=== PATIENT | female | born 1990 | race African-American/Black ===

== ENCOUNTER 2020-01-15 18:32 | Emergency (ER) | payer OTHER, SELFPAY ==
--- OUTSIDE RECORDS SUMMARY | 2020-01-15 18:34 | XMS REPORT | Continuity of Care Document ---
:1990 Author Organization [facility] t Address [address] [place] [address] Care Team Providers Name Role Phone Bryan Flores MD Attending Clinician Bryan Flores MD Admitting Clinician Problems This patient has no known problems. Allergies, Adverse Reactions, Alerts This patient has no known allergies or adverse reactions. Medications This patient has no known medications. Procedures This patient has no known procedures. Encounters Start End Encounter Admission Attending Care Care Encounter Source Date/Time Date/Time Type Type Clinicians Facility Department ID 2019-01-31 2019-02-01 [facility] Brit Floresen [place] [id number] 04:19:00 18:16:00 Encounter Bryan Rosas [id number] [place] [id number] [place] [id number] Results This patient has no known results.
--- NOTE | 2020-01-15 19:35 | RAD REPORT ---
EXAM DESCRIPTION: Gerson Johnson (2 Views)01/15/2020 7:28 pm CLINICAL HISTORY: Shortness of breath COMPARISON: None FINDINGS: The lungs appear clear of acute infiltrate. The heart is normal size IMPRESSION: No acute abnormalities displayed
[2020-01-15 20:32] LABS: Absolute Lymphocytes (CBC) 0.6 K/uL (0.7-4.9); Basophils % 0.2 % (0-1.3); Hematocrit 38.9 % (36.0-45.0); Lymphocytes % 5.3 % (15.3-44.8); RBC Red Blood Cell Count 4.08 M/uL (3.86-4.86)
[2020-01-15] MEDS ORDERED: NA CHLORIDE 0.9% 1,000 ML ONE (20:44)
[2020-01-15] MEDS ORDERED: KETOROLAC 30 MG/ML INJ ONE (20:44)
[2020-01-15] MEDS ORDERED: ALBUTEROL INHALER 60 PUFF/8 GM IH ONE (20:45)
[2020-01-15 20:47] LABS: ALT/SGPT 25 U/L (12-78); AST/SGOT 21 U/L (15-37); Albumin 3.9 g/dL (3.4-5.0); Alkaline Phosphatase 81 U/L (45-117); BUN Blood Urea Nitrogen 9 mg/dL (7-18); Bicarbonate 26 mmol/L (21-32); Bilirubin Direct < 0.1 mg/dL (0-0.2); Bilirubin Total 0.3 mg/dL (0.2-1.0); Glucose Level 111 mg/dL (74-106); Potassium 3.4 mmol/L (3.5-5.1); Protein, Total 8.2 g/dL (6.4-8.2); Sodium Level 140 mmol/L (136-145); Troponin (Emerg Dept Use Only) < 0.02 ng/mL (0.0-0.045)
[2020-01-15 20:50] LABS: Blood Morphology Comment NOT SEEN (NOT SEEN); Platelet Estimate ADEQ; White Blood Cell Scan OK (OK)
[2020-01-15 20:54] LABS: Protime INR 0.96
[2020-01-15 21:10] LABS: Urine Bacteria <20 /HPF (<20); Urine Culture Reflex Order REFLEXED; Urine RBC <5 /HPF (NONE SEEN)
[2020-01-15 21:11] LABS: Urine Blood NEGATIVE (NEG); Urine Glucose NEGATIVE (NEG); Urine Protein NEGATIVE (NEG)
[2020-01-15] MEDS ORDERED: CEFTRIAXONE/SWI 1gm 1 GM/10 ML SYR ONE (21:15)
[2020-01-15] MEDS ORDERED: AZITHROMYCIN 250 MG TAB ONE (22:24)
[2020-01-15] MEDS ORDERED: dexAMETHasone 10 MG/ML VIAL ONE (22:28)
[2020-01-15] MEDS ORDERED: POTASSIUM 25 MEQ EFFERV TAB ONE (22:34)
--- NOTE | 2020-01-15 22:35 | EDPHYS ---
Physician Documentation [facility] Name: Sugar Hughes Age: 29 yrs Sex: Female : 1990 Arrival Date: 01/15/2020 Time: 18:31 Bed 19 Private MD: ED Physician Shan Flores HPI: 01/14 20:05 This 29 yrs old Black Female presents to ER via Ambulatory with complaints of Chest cp Pain, Shortness Of Breath. 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 - Social history:: Smoking status: Patient denies any tobacco usage or history of. ROS: 20:10 Constitutional: Negative for fever, poor PO intake. cp 20:10 Eyes: Negative for injury, pain, redness, and discharge. cp 20:10 ENT: Positive for sore throat, Negative for ear pain, difficulty swallowing, difficulty handling secretions. 20:10 Neck: Negative for pain with movement, pain at rest, stiffness. 20:10 Cardiovascular: Positive for chest pain, Negative for edema, palpitations. 20:10 Respiratory: Positive for cough, "sounds productive", shortness of breath, at rest. Negative for wheezing. 20:10 Abdomen/GI: Negative for abdominal pain, nausea, vomiting, and diarrhea. 20:10 Back: Negative for radiated pain. 20:10 : Negative for urinary symptoms. 20:10 Skin: Negative for rash. 20:10 Neuro: Negative for altered mental status, headache, syncope, weakness. 20:10 All other systems are negative. Exam: 18:40 ECG was reviewed by the Attending Physician. cp 20:12 Constitutional: The patient appears in no acute distress, alert, awake, cp non-diaphoretic, non-toxic, well developed, well nourished, uncomfortable. 20:12 Head/Face: Normocephalic, atraumatic. cp 20:12 Eyes: Periorbital structures: appear normal, Conjunctiva: normal, no exudate, no injection, Sclera: no appreciated abnormality, Lids and lashes: appear normal, bilaterally. 20:12 ENT: External ear(s): are unremarkable, Ear canal(s): are normal, clear, TM's: bulging, is not appreciated, bilaterally, dullness, bilaterally, erythema, is not appreciated, bilaterally, Nose: is normal, Mouth: Lips: moist, Oral mucosa: moist, Posterior pharynx: Airway: no evidence of obstruction, patent, Tonsils: with erythema, no enlargement, no exudate, swelling, is not appreciated, erythema, that is mild, exudate, is not appreciated. 20:12 Neck: ROM/movement: is normal, is supple, without pain, no range of motions limitations. 20:12 Chest/axilla: Inspection: normal, Palpation: is normal, no crepitus, no tenderness. 20:12 Cardiovascular: Rate: normal, Rhythm: regular, Edema: is not appreciated, JVD: is not appreciated. 20:12 Respiratory: the patient does not display signs of respiratory distress, Respirations: normal, no use of accessory muscles, no retractions, labored breathing, is not present, Breath sounds: decreased breath sounds, are not appreciated, stridor, is not appreciated, wheezing: is not appreciated. 20:12 Abdomen/GI: Inspection: abdomen appears normal, Palpation: abdomen is soft and non-tender, in all quadrants. 20:12 Back: CVA tenderness, is absent. 20:12 Skin: no rash present. 20:12 Neuro: Orientation: to person, place \\T\\ time. Mentation: is normal, Cerebellar function: is grossly normal, Motor: moves all fours, strength is normal, Sensation: is normal. Vital Signs: 18:32 BP 109 / 77; Pulse 95; Resp 24; Temp 98.7; Pulse Ox 99% ; Weight 54.43 kg; Height 5 ft. sv 4 in. (162.56 cm); 19:56 BP 112 / 75; Pulse 95; Resp 19 S; Pulse Ox 99% on R/A; ca1 20:57 BP 113 / 67; Pulse 103; Resp 18; Pulse Ox 100% on R/A; ca1 22:18 BP 105 / 80; Pulse 93; Resp 18; Temp 98.9; Pulse Ox 99% on R/A; Pain 0/10; ca1 18:32 Body Mass Index 20.60 (54.43 kg, 162.56 cm) sv MDM: 19:53 Patient medically screened. cp 20:30 Differential diagnosis: abnormal EKG, acute pericarditis, costochondritis, pleurisy, cp pneumonia, pneumothorax, pulmonary embolus. 22:15 Data reviewed: vital signs, nurses notes, lab test result(s), EKG, radiologic studies, cp CT scan, plain films, and as a result, I will discharge patient. 22:33 Test interpretation: by ED physician or midlevel provider: ECG, chest xray negative for cp focal pneumonia. 22:33 Counseling: I had a detailed discussion with the patient and/or guardian regarding: the cp historical points, exam findings, and any diagnostic results supporting the discharge/admit diagnosis, lab results, radiology results, the need for outpatient follow up, a family practitioner, to return to the emergency department if symptoms worsen or persist or if there are any questions or concerns that arise at home. Response to treatment: the patient's symptoms have markedly improved after treatment. ED course: VSS. Patient appears non-toxic and not in respiratory distress. Oxygen sats 99% on room air. Will discharge to home for continued monitoring. 01/14 20:04 Order name: Basic Metabolic Panel; Complete Time: 20:57 cp 01/14 20:57 Interpretation: Normal except: K 3.4; CL 108; GLUC 111; GFR 63. cp 01/14 20:04 Order name: CBC with Diff; Complete Time: 20:57 cp 01/14 20:47 Interpretation: Normal except: MCV 95.3; ALEJO% 85.4; LYM% 5.3; NEUT A 9.3; LYMA 0.6. cp 01/14 20:04 Order name: LFT's; Complete Time: 20:57 cp 01/14 20:04 Order name: Magnesium; Complete Time: 20:57 cp 01/14 20:04 Order name: PT-INR; Complete Time: 20:57 cp 01/14 20:04 Order name: Troponin (emerg Dept Use Only); Complete Time: 20:57 cp 01/14 20:04 Order name: COVID-19 cp 01/14 20:04 Order name: Strep; Complete Time: 20:57 cp 01/14 20:04 Order name: Influenza Screen (a \\T\\ B); Complete Time: 20:57 cp 01/14 20:04 Order name: D-Dimer; Complete Time: 20:57 cp 01/14 20:41 Order name: Urine Microscopic Only; Complete Time: 22:05 sg 01/14 22:05 Interpretation: Normal except: UWBC 10-20. cp 01/14 20:43 Order name: Urine --Ancillary (enter results); Complete Time: 22:05 tt3 01/14 20:43 Order name: Urine Dipstick--Ancillary (enter results); Complete Time: 22:05 tt3 01/14 22:06 Interpretation: Normal except: U NIT POSITIVE; UESTR 1+. cp 01/14 20:50 Order name: CBC Smear Scan; Complete Time: 20:57 EDMS 01/14 18:39 Order name: EKG; Complete Time: 18:42 sv 01/14 18:39 Order name: EKG - Nurse/Tech; Complete Time: 18:39 sv 01/14 18:41 Order name: Chest Pa And Lat (2 Views) XRAY; Complete Time: 20:01 sv 01/14 20:04 Order name: Cardiac monitoring; Complete Time: 20:26 cp 01/14 20:04 Order name: IV Saline Lock; Complete Time: 20:26 cp 01/14 20:04 Order name: Labs collected and sent; Complete Time: 20:26 cp 01/14 20:04 Order name: O2 Per Protocol; Complete Time: 20:26 cp 01/14 20:59 Order name: CT Chest For PE Angio cp 01/14 21:11 Order name: Urine Culture EDIN 01/14 20:04 Order name: O2 Sat Monitoring; Complete Time: 20:26 cp 01/14 20:04 Order name: Urine Dipstick-Ancillary (obtain specimen); Complete Time: 20:37 cp 01/14 20:04 Order name: Urine Test (obtain specimen); Complete Time: 20:37 cp EC:40 Rate is 100 beats/min. Rhythm is regular. MT interval is normal. QRS interval is cp normal. QT interval is normal. T waves are Inverted in leads III, aVR. Interpreted by me. Reviewed by me. Administered Medications: 20:12 Drug: Albuterol HFA Inhaler 2 puffs Route: Inhalation; ca1 20:30 Drug: NS 0.9% 1000 ml Route: IV; Rate: 1 bolus; Site: left antecubital; ca1 20:45 Drug: TORadol - Ketorolac 15 mg Route: IVP; Site: left antecubital; ca1 21:03 Drug: Rocephin - (cefTRIAXone) 1 grams Route: IVPB; Infused Over: 30 mins; Site: left ca1 antecubital; 22:17 Drug: Decadron - Dexamethasone 6 mg Route: IVP; Infused Over: 2 mins; Site: left ca1 antecubital; 22:18 Drug: Zithromax 500 mg Route: PO; ca1 22:18 Drug: Potassium Effervescent Tablet 25 mEq Route: PO; ca1 Disposition: 23:52 Co-signature as Attending Physician, Shan Flores MD. pkl Disposition: 01/15/20 22:35 Discharged to Home. Impression: Pneumonia due to other specified infectious organisms, Influenza due to other identified influenza virus, Streptococcal pharyngitis. - Condition is Stable. - Discharge Instructions: Influenza, Adult, Community-Acquired Pneumonia, Adult, Strep Throat, COVID-19. - Prescriptions for dexamethasone 2 mg Oral tablet - take 1 tablet by ORAL route 3 times per day; 15 tablet. Augmentin 875- 125 mg Oral Tablet - take 1 tablet by ORAL route every 12 hours for 10 days; 20 tablet. Tessalon Perles 100 mg Oral Capsule - take 1 capsule by ORAL route every 8 hours As needed; 15 capsule. Zithromax Z- Dejon 250 mg Oral Tablet - take 1 tablet by ORAL route as directed for 5 days Day 1 - take two (2) tablets one time. Day 2, 3, 4 , 5 take one (1) tablet once daily.; 6 tablet. Albuterol Sulfate 90 mcg/actuation - inhale 1-2 puff by INHALATION route every 4-6 hours; 1 Inhaler. Tamiflu 75 mg Oral Capsule - take 1 tablet by ORAL route every 12 hours for 5 days; 10 tablet. - Medication Reconciliation Form, Thank You Letter, Antibiotic Education, Prescription Opioid Use form. - Follow up: Private Physician; When: 1 - 2 days; Reason: Recheck today's complaints. - Problem is new. - Symptoms have improved. Signatures: Dispatcher [employer] Carolyne Smith RN RN kl Verde, Stephanie, RN RN sv Lam, Pin, MD MD pkl Jack Tong PA PA cp Acob, EFFIE Henson RN ca1 Corrections: (The following items were deleted from the chart) 20:47 20:47 Normal except: MCV 95.3; ALEJO% 85.4; LYM% 5.3; NEUT A 9.3. cp cp 21:00 21:00 This 29 yrs old Black Female presents to ER via Ambulatory with complaints of cp Chest Pain, Shortness Of Breath. cp 22:54 22:35 01/15/2020 22:35 Discharged to Home. Impression: Pneumonia due to other specified kl infectious organisms; Influenza due to other identified influenza virus; Streptococcal pharyngitis. Condition is Stable. Forms are Medication Reconciliation Form, Thank You Letter, Antibiotic Education, Prescription Opioid Use. Follow up: Private Physician; When: 1 - 2 days; Reason: Recheck today's complaints. Problem is new. Symptoms have improved. cp
--- NOTE | 2020-01-15 22:35 | ER ---
Nurse's Notes [facility] Name: Sugar Hughes Age: 29 yrs Sex: Female : 1990 Arrival Date: 01/15/2020 Time: 18:31 Bed 19 Private MD: Diagnosis: Pneumonia due to other specified infectious organisms;Influenza due to other identified influenza virus;Streptococcal pharyngitis Presentation: 01/14 18:31 Chief complaint: Patient states: SOB, midsternal chest pain started today. Coronavirus sv screen: Client denies travel out of the [place] in the last 14 days. shortness of breath. Ebola Screen: No symptoms or risks identified at this time. Risk Assessment: Do you want to hurt yourself or someone else? Patient reports no desire to harm self or others. Onset of symptoms was January 15, 2020. 18:31 Method Of Arrival: Ambulatory sv 18:31 Acuity: KELBY 3 sv 18:32 Initial Sepsis Screen: Does the patient meet any 2 criteria? No. Patient's initial sv sepsis screen is negative. Does the patient have a suspected source of infection? No. Patient's initial sepsis screen is negative. Triage Assessment: 18:31 General: Appears in no apparent distress. uncomfortable, Behavior is anxious, restless. sv Pain: Complains of pain in chest. Neuro: Level of Consciousness is awake, alert, obeys commands, Oriented to person, place, time, situation, Gait is steady. Cardiovascular: Reports chest pain. Respiratory: Reports shortness of breath Respiratory effort is even, unlabored, Respiratory pattern is regular, symmetrical. 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 - Social history:: Smoking status: Patient denies any tobacco usage or history of. Screenin:52 Abuse screen: Denies threats or abuse. Denies injuries from another. Nutritional ca1 screening: No deficits noted. Tuberculosis screening: No symptoms or risk factors identified. Fall Risk None identified. Assessment: 18:39 Reassessment: Ok by Dr Cook to do an EKG. sv 18:41 Reassessment: Ok by Janine LYNNE to input a CXR. sv 19:52 General: Appears in no apparent distress. comfortable, Behavior is calm, cooperative, ca1 appropriate for age. Pain: Complains of pain in mid-sternal area Pain does not radiate. Pain currently is 4 out of 10 on a pain scale. Pain began today. Neuro: Level of Consciousness is awake, alert, obeys commands, Oriented to person, place, time, situation. Cardiovascular: Heart tones S1 S2 present Capillary refill < 3 seconds Patient's skin is warm and dry. Rhythm is regular. Respiratory: Reports shortness of breath at rest cough that is productive, Airway is patent Respiratory effort is even, unlabored, Respiratory pattern is regular, symmetrical, Breath sounds are clear bilaterally. GI: Abdomen is flat, non-distended, Bowel sounds present X 4 quads. Abd is soft and non tender X 4 quads. : No signs and/or symptoms were reported regarding the genitourinary system. EENT: No signs and/or symptoms were reported regarding the EENT system. Derm: Skin is intact, is healthy with good turgor, Skin is pink, warm \T\ dry. Musculoskeletal: Circulation, motion, and sensation intact. Capillary refill < 3 seconds. 20:57 Reassessment: Patient appears in no apparent distress at this time. Patient and/or ca1 family updated on plan of care and expected duration. Pain level reassessed. Patient is alert, oriented x 3, equal unlabored respirations, skin warm/dry/pink. Vital Signs: 18:32 BP 109 / 77; Pulse 95; Resp 24; Temp 98.7; Pulse Ox 99% ; Weight 54.43 kg; Height 5 ft. sv 4 in. (162.56 cm); 19:56 BP 112 / 75; Pulse 95; Resp 19 S; Pulse Ox 99% on R/A; ca1 20:57 BP 113 / 67; Pulse 103; Resp 18; Pulse Ox 100% on R/A; ca1 22:18 BP 105 / 80; Pulse 93; Resp 18; Temp 98.9; Pulse Ox 99% on R/A; Pain 0/10; ca1 18:32 Body Mass Index 20.60 (54.43 kg, 162.56 cm) sv ED Course: 18:31 Patient arrived in ED. sv 18:32 Triage completed. sv 18:33 Arm band placed on. sv 18:39 EKG completed in triage. Results shown to MD. sv 19:28 Chest Pa And Lat (2 Views) XRAY In Process Unspecified. EDMS 19:50 Jack Tong PA is PHCP. cp 19:50 Shan Flores MD is Attending Physician. cp 19:52 Natividad Perez, RN is Primary Nurse. ca1 19:52 Patient has correct armband on for positive identification. Placed in gown. Bed in low ca1 position. Call light in reach. Side rails up X 1. Pulse ox on. NIBP on. monitoring specialist on. Warm blanket given. 19:52 No provider procedures requiring assistance completed. Patient maintains SpO2 ca1 saturation greater than 95% on room air. 20:21 Initial lab(s) drawn, Flu and/or RSV swab sent to lab. Inserted saline lock: 20 gauge ca1 in left antecubital area, using aseptic technique. Blood collected. 20:27 Influenza Screen (a \T\ B) Sent. ca1 20:27 Strep Sent. ca1 20:27 COVID-19 Sent. ca1 21:22 CT Chest For PE Angio In Process Unspecified. EDMS 22:53 intact, bleeding controlled, No redness/swelling at site. Pressure dressing applied. kl Administered Medications: 20:12 Drug: Albuterol HFA Inhaler 2 puffs Route: Inhalation; ca1 20:30 Drug: NS 0.9% 1000 ml Route: IV; Rate: 1 bolus; Site: left antecubital; ca1 20:45 Drug: TORadol - Ketorolac 15 mg Route: IVP; Site: left antecubital; ca1 21:03 Drug: Rocephin - (cefTRIAXone) 1 grams Route: IVPB; Infused Over: 30 mins; Site: left ca1 antecubital; 22:17 Drug: Decadron - Dexamethasone 6 mg Route: IVP; Infused Over: 2 mins; Site: left ca1 antecubital; 22:18 Drug: Zithromax 500 mg Route: PO; ca1 22:18 Drug: Potassium Effervescent Tablet 25 mEq Route: PO; ca1 Outcome: 22:35 Discharge ordered by MD. cp 22:52 Discharged to home ambulatory. kl 22:52 Condition: good 22:52 Discharge instructions given to patient, Instructed on discharge instructions, follow up and referral plans. medication usage, safety practices, Demonstrated understanding of instructions, follow-up care, medications, Prescriptions given X x6 22:54 Patient left the ED. kl Addendum: 01/17/2020 14:36 Addendum: COVID-19 Result: Negative result given to RN to notify pt. Attempted to s s contact pt regarding negative COVID-19 swab results. Unable to leave voice mail due to the number provided was either not a working number, the voice mail has not been set up, or the voice mailbox is full.. 14:47 Addendum: COVID-19 Result: Negative result given to RN to notify pt. Notified pt of s s negative COVID 19 swab results. Pt advised that even with a negative test result they should remain in isolation until symptom free for 3 days without medication. Pt also advised to return to the ED for worsening symptoms. Signatures: Dispatcher [employer] EDMS Carolyne Stevenson RN RN kl Verde, Stephanie, RN RN sv Smirch, Shelby, RN RN ss Page, Corey, PA PA cp Acob, Cheryl, RN RN ca1
--- NOTE | 2020-01-16 06:04 | EKG ---
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
[2020-01-16 09:26] VITALS: BP 105/80; TEMP 98.9; O2SAT 99
--- NOTE | 2020-01-16 10:06 | RAD REPORT ---
EXAM DESCRIPTION: CT - Chest For Pe Angio - 01/16/2020 6:37 am CLINICAL HISTORY: The patient is 29 years old and is Female; Chest pain;SOB TECHNIQUE: Axial computed tomographic angiography images of the chest with intravenous contrast. S agittal and coronal reformatted images were created and reviewed. This CT exam was performed using one or more of the following dose reduction techniques: automated exposure control, adjustment of t he mA and/or kV according to patient size, and/or use of iterative reconstruction technique. MIP reconstructed images were created and reviewed. COMPARISON: No relevant prior studies available. FINDINGS: ARTIFACTS: The exam is suboptimal secondary to motion artifact. PULMONARY ARTERIES: There are no obvious filling defects identified within the pulmonary arterie s to suggest pulmonary embolism. AORTA: No acute findings. No thoracic aortic aneurysm. LUNGS: Minimal foci of dependent density in the lung bases are present. There is no lobar consol idation. PLEURAL SPACE: Unremarkable. No significant effusion. No pneumothorax. HEART: Unremarkable. No cardiomegaly. No significant pericardial effusion. No evidence of RV dysfunction. MEDIASTINUM: The tracheobronchial tree is widely patent. BONES/JOINTS: No acute fracture. No dislocation. SOFT TISSUES: Unremarkable. LYMPH NODES: Unremarkable. No enlarged lymph nodes. IMPRESSION: 1. No evidence of pulmonary embolism. 2. Nonspecific foci of groundglass opacity in the lung bases. Findings may be secondary to mild foc al infectious versus inflammatory process. Electronically signed by: Charity Pedraza MD 01/15/2020 9:50 PM CREDIT SUPPORT SPECIALIST Due to temporary technical issues with the PACS/Fluency reporting system, reports are being signed by the in house radiologist without review as a courtesy to ensure prompt reporting. The interpreting r adiologist is fully responsible for the content of the report.
== END 2020-01-15 22:54 | disposition home or self-care (01) ==
LOC: ER 18:32
DX: J10.08 Influenza due to other identified influenza virus with other specified pneumonia (principal); J16.8 Pneumonia due to other specified infectious organisms; J02.0 Streptococcal pharyngitis; Z20.828 Contact with and (suspected) exposure to other viral communicable diseases
CPT/HCPCS: 36415; 71046; 71275; 80048; 80076; 81003; 81015; 81025; 83735; 84484; 85025; 85379; 85610; 87081; 87086; 87088; 87804; 93005; 96374; 96375; 99285; J0696; J1100; J7030; Q9967; U0002

== ENCOUNTER 2023-07-02 17:58 | Emergency (ER) | payer OTHER, SELFPAY ==
--- OUTSIDE RECORDS SUMMARY | 2023-07-02 18:02 | XMS REPORT | Continuity of Care Document ---
Author Name Unknown Address [address] [facility] [address] [place] [address] [facility] thconnect Address [address] [facility] [address] [place] [address] Care Team Providers Care Human Service Specialist Name Role Phone Pcp, Patient Does Not Have A Primary Care Physic michele YANETH LAUGHLIN Attending Clinician Unavailable Truman CASTILLO, Yaneth Adams Attending Clinician [phone] Doctor Unassigned, [place] Attending Clinician U navailable Nurse, [facility] Attending Clinician Un available Nurse, [facility] Pob Immunization Attending Clinician Unavailable Sidney Lindsey DO Attending Clinician [phone] SIDNEY LINDSEY Attending Clinician Unavail able 2, [facility] Lab Attending Clinician Unavailable Pob, [facility] Lab Main Attending Clinician UnavailGenna Solomon Attending Clinician [phone] KYARA COFFEY Attending Clinician Unavailable Kyara Coffey PA-C Attending Clinician [phone] Ultrasound, [facility] Mfm Attending Clinician Unavailjohn Laughlin MD, Yaneth Adams Admitting Clinician [phone] YANETH LAUGHLIN Admitting Clinician Unavailable Payers Payer Name Policy Type Policy Number Effective Date Expirati on Date Source [employer] [place] [id number] 2020 00:00:00 [facility] [id number] 2020 00:00:00 Problems Condition Name Condition Details Condition Category Status Onset Date Resolution Date Last Treatment Date Treating Clinician Comments Source Encounter for well woman exam with routine gynecologi berenice exam Encounter for well woman exam with routine gynecologi berenice exam Disease Active 03-08 00:00: 00 [facility] Depression , unspecifie d depression type Depression , unspecifie d depression type Disease Active 03-26 00:00: 00 [facility] Allergies, Adverse Reactions, Alerts Allergy Name Allergy Type Status Severity Reaction(s) Onset Date Inactive Date Treating Clinician Comments Source NO KNOWN ALLERGIE S Drug Class Active [facility] Social History Social Habit Start Date Stop Date Quantity Comments [facility] function 2023-06-14 00:00:00 2023-06-14 00:00:00 [facility] Alcohol intake 2023-06-14 00:00:00 2023-06-14 00:00:00 Current drinker of alcohol (finding) [facility] Tobacco use and exposure 2023-03-15 00:00:00 2023-03-15 00:00:00 Smokeless tobacco non-user [facility] Exposure to SARS-CoV-2 (event) 2022-02-26 00:00:00 2022-03-08 15:16:00 Not sure [facility] Alcohol Comment 2022-03-08 00:00:00 2022-03-08 00:00:00 occasionally [facility] Sex Assigned At 1990 00:00:00 1990 00:00:00 [facility] Smoking Status Start Date Stop Date Source Never smoked tobacco [facility] Medications Ordered Medication Name Filled Medication Name Start Date Stop Date Current Medication? Ordering Clinician Indication Dosage Frequency Signature (SIG) Comments Components Source metroNIDAZO LE (FLAGYL) 500 mg tablet 03-17 00:00: 00 03-25 05:59 :00 No [id number] 500mg Take 1 tablet by mouth in the morning and 1 tablet in the evening. Do all this for 7 days. [facility] medroxyPROG ESTERone (PROVERA) 10 mg tablet 2024-0 1-17 00:00: 00 Yes [id number] 10mg Take 1 tablet by mouth in the morning. [facility] PNV Comb #2-Iron-Ome ga 3-FA (COMPLETE MARCELLO DHA) 29-1-250-20 0 mg combo pack 03-24 00:00: 00 Yes 1{packe t} Take 1 Packet by mouth in the morning. [facility] PNV Comb #2-Iron-Ome ga 3-FA (COMPLETE MARCELLO DHA) 29-1-250-20 0 mg combo pack 03-24 00:00: 00 Yes 1{packe t} Take 1 Packet by mouth in the morning. [facility] SERTraline (ZOLOFT) 25 mg tablet 11-17 00:00: 00 Yes [id number] 25mg Take 1 tablet by mouth in the morning. [facility] SERTraline (ZOLOFT) 50 mg tablet 8-16 00:00: 00 11-17 00:00 :00 No [id number] 50mg Take 1 tablet by mouth in the morning. [facility] PNV Comb #2-Iron-Ome ga 3-FA (COMPLETE MARCELLO DHA) 29-1-250-20 0 mg combo pack 3-14 00:00: 00 03-24 00:00 :00 No 1{packe t} Take 1 Packet by mouth daily. [facility] Immunizations Ordered Immunization Name Filled Immunization Name Date Status Comments Source Influenza Virus Vaccine Quad IM, Preserv and ABX Free 6 MO-64 YRS 2022-03-08 00:00:00 Completed [facility] Influenza Virus Vaccine Quad IM, Preserv and ABX Free 6 MO-64 YRS 2022-03-08 00:00:00 Completed [facility] Influenza Virus Vaccine Quad IM, Preserv and ABX Free 6 MO-64 YRS 2022-03-08 00:00:00 Completed [facility] HPV9 2021-09-06 00:00:00 Completed [facility] HPV9 2021-09-06 00:00:00 Completed [facility] HPV9 2021-09-06 00:00:00 Completed [facility] HPV9 2021-09-06 00:00:00 Completed [facility] HPV9 2021-09-06 00:00:00 Completed [facility] HPV9 2021-09-06 00:00:00 Completed [facility] HPV9 2021-09-06 00:00:00 Completed [facility] HPV9 2021-09-06 00:00:00 Completed [facility] HPV9 2021-05-06 00:00:00 Completed [facility] HPV9 2021-05-06 00:00:00 Completed [facility] HPV9 2021-05-06 00:00:00 Completed [facility] HPV9 2021-05-06 00:00:00 Completed [facility] HPV9 2021-05-06 00:00:00 Completed [facility] HPV9 2021-05-06 00:00:00 Completed [facility] HPV9 2021-05-06 00:00:00 Completed [facility] HPV9 2021-05-06 00:00:00 Completed [facility] HPV9 2021-03-08 00:00:00 Completed [facility] HPV9 2021-03-08 00:00:00 Completed [facility] HPV9 2021-03-08 00:00:00 Completed [facility] HPV9 2021-03-08 00:00:00 Completed [facility] HPV9 2021-03-08 00:00:00 Completed [facility] HPV9 2021-03-08 00:00:00 Completed [facility] HPV9 2021-03-08 00:00:00 Completed [facility] HPV9 2021-03-08 00:00:00 Completed [facility] SARS-COV-2 COVID-19 PFIZER VACCINE 2020-10-21 00:00:00 Completed [facility] SARS-COV-2 COVID-19 PFIZER VACCINE 2020-10-21 00:00:00 Completed [facility] SARS-COV-2 COVID-19 PFIZER VACCINE 2020-10-21 00:00:00 Completed [facility] SARS-COV-2 COVID-19 PFIZER VACCINE 2020-10-21 00:00:00 Completed [facility] SARS-COV-2 COVID-19 PFIZER VACCINE 2020-10-21 00:00:00 Completed [facility] SARS-COV-2 COVID-19 PFIZER VACCINE 2020-10-21 00:00:00 Completed [facility] SARS-COV-2 COVID-19 PFIZER VACCINE 2020-10-21 00:00:00 Completed [facility] SARS-COV-2 COVID-19 PFIZER VACCINE 2020-10-21 00:00:00 Completed [facility] SARS-COV-2 COVID-19 PFIZER VACCINE 2020-09-30 00:00:00 Completed [facility] SARS-COV-2 COVID-19 PFIZER VACCINE 2020-09-30 00:00:00 Completed [facility] SARS-COV-2 COVID-19 PFIZER VACCINE 2020-09-30 00:00:00 Completed [facility] SARS-COV-2 COVID-19 PFIZER VACCINE 2020-09-30 00:00:00 Completed [facility] SARS-COV-2 COVID-19 PFIZER VACCINE 2020-09-30 00:00:00 Completed [facility] SARS-COV-2 COVID-19 PFIZER VACCINE 2020-09-30 00:00:00 Completed [facility] SARS-COV-2 COVID-19 PFIZER VACCINE 2020-09-30 00:00:00 Completed [facility] SARS-COV-2 COVID-19 PFIZER VACCINE 2020-09-30 00:00:00 Completed [facility] Influenza Virus Vaccine Quad .5 mL IM 6+ MO 2020-03-11 00:00:00 Completed [facility] Influenza Virus Vaccine Quad .5 mL IM 6+ MO 2020-03-11 00:00:00 Completed [facility] Influenza Virus Vaccine Quad .5 mL IM 6+ MO 2020-03-11 00:00:00 Completed [facility] Influenza Virus Vaccine Quad .5 mL IM 6+ MO 2020-03-11 00:00:00 Completed [facility] Influenza Virus Vaccine Quad .5 mL IM 6+ MO 2020-03-11 00:00:00 Completed [facility] Influenza Virus Vaccine Quad .5 mL IM 6+ MO 2020-03-11 00:00:00 Completed [facility] Influenza Virus Vaccine Quad .5 mL IM 6+ MO 2020-03-11 00:00:00 Completed [facility] Influenza Virus Vaccine Quad .5 mL IM 6+ MO 2020-03-11 00:00:00 Completed [facility] Influenza Virus Vaccine Quad .5 mL IM 6+ MO 2018-11-22 00:00:00 Completed [facility] TDAP (ADACEL) VACCINE 2018-11-22 00:00:00 Completed [facility] Influenza Virus Vaccine Quad .5 mL IM 6+ MO 2018-11-22 00:00:00 Completed [facility] TDAP (ADACEL) VACCINE 2018-11-22 00:00:00 Completed [facility] Influenza Virus Vaccine Quad .5 mL IM 6+ MO 2018-11-22 00:00:00 Completed [facility] TDAP (ADACEL) VACCINE 2018-11-22 00:00:00 Completed [facility] Influenza Virus Vaccine Quad .5 mL IM 6+ MO 2018-11-22 00:00:00 Completed [facility] TDAP (ADACEL) VACCINE 2018-11-22 00:00:00 Completed [facility] Influenza Virus Vaccine Quad .5 mL IM 6+ MO 2018-11-22 00:00:00 Completed [facility] TDAP (ADACEL) VACCINE 2018-11-22 00:00:00 Completed [facility] Influenza Virus Vaccine Quad .5 mL IM 6+ MO 2018-11-22 00:00:00 Completed [facility] TDAP (ADACEL) VACCINE 2018-11-22 00:00:00 Completed [facility] Influenza Virus Vaccine Quad .5 mL IM 6+ MO 2018-11-22 00:00:00 Completed [facility] TDAP (ADACEL) VACCINE 2018-11-22 00:00:00 Completed [facility] Influenza Virus Vaccine Quad .5 mL IM 6+ MO 2018-11-22 00:00:00 Completed [facility] TDAP (ADACEL) VACCINE 2018-11-22 00:00:00 Completed [facility] TDAP 2016-03-17 00:00:00 Completed [facility] TDAP 2016-03-17 00:00:00 Completed [facility] TDAP 2016-03-17 00:00:00 Completed [facility] TDAP 2016-03-17 00:00:00 Completed [facility] TDAP 2016-03-17 00:00:00 Completed [facility] TDAP 2016-03-17 00:00:00 Completed [facility] TDAP 2016-03-17 00:00:00 Completed [facility] TDAP 2016-03-17 00:00:00 Completed [facility] Influenza Virus Vaccine Quad IM 3+ YRS 2015-12-24 00:00:00 Completed [facility] Influenza Virus Vaccine Quad IM 3+ YRS 2015-12-24 00:00:00 Completed [facility] Influenza Virus Vaccine Quad IM 3+ YRS 2015-12-24 00:00:00 Completed [facility] Influenza Virus Vaccine Quad IM 3+ YRS 2015-12-24 00:00:00 Completed [facility] Influenza Virus Vaccine Quad IM 3+ YRS 2015-12-24 00:00:00 Completed [facility] Influenza Virus Vaccine Quad IM 3+ YRS 2015-12-24 00:00:00 Completed [facility] Influenza Virus Vaccine Quad IM 3+ YRS 2015-12-24 00:00:00 Completed [facility] Influenza Virus Vaccine Quad IM 3+ YRS 2015-12-24 00:00:00 Completed [facility] Influenza Virus Vaccine Quad IM 3+ YRS Unknown Completed [facility] TDAP Unknown Completed [facility] TDAP (ADACEL) VACCINE Unknown Completed [facility] Influenza Virus Vaccine Quad .5 mL IM 6+ MO (FLUZONE/FLULAVAL/F LUARIX) Unknown Completed [facility] Influenza Virus Vaccine Quad .5 mL IM 6+ MO (FLUZONE/FLULAVAL/F LUARIX) Unknown Completed [facility] SARS-COV-2 COVID-19 PFIZER VACCINE Unknown Completed [facility] SARS-COV-2 COVID-19 PFIZER VACCINE Unknown Completed [facility] Influenza Virus Vaccine Quad IM 3+ YRS Unknown Completed [facility] TDAP Unknown Completed [facility] TDAP (ADACEL) VACCINE Unknown Completed [facility] Influenza Virus Vaccine Quad .5 mL IM 6+ MO (FLUZONE/FLULAVAL/F LUARIX) Unknown Completed [facility] Influenza Virus Vaccine Quad .5 mL IM 6+ MO (FLUZONE/FLULAVAL/F LUARIX) Unknown Completed [facility] SARS-COV-2 COVID-19 PFIZER VACCINE Unknown Completed [facility] SARS-COV-2 COVID-19 PFIZER VACCINE Unknown Completed [facility] HPV9 Unknown Completed [facility] HPV9 Unknown Completed [facility] HPV9 Unknown Completed [facility] Influenza Virus Vaccine Quad IM, Preserv and ABX Free 6 MO-64 YRS (FLUCELVAX) Unknown Completed [facility] Influenza Virus Vaccine Quad IM 3+ YRS Unknown Completed [facility] TDAP Unknown Completed [facility] TDAP (ADACEL) VACCINE Unknown Completed [facility] Influenza Virus Vaccine Quad .5 mL IM 6+ MO (FLUZONE/FLULAVAL/F LUARIX) Unknown Completed [facility] Influenza Virus Vaccine Quad .5 mL IM 6+ MO (FLUZONE/FLULAVAL/F LUARIX) Unknown Completed [facility] SARS-COV-2 COVID-19 PFIZER VACCINE Unknown Completed [facility] SARS-COV-2 COVID-19 PFIZER VACCINE Unknown Completed [facility] HPV9 Unknown Completed [facility] HPV9 Unknown Completed [facility] HPV9 Unknown Completed [facility] Influenza Virus Vaccine Quad IM, Preserv and ABX Free 6 MO-64 YRS (FLUCELVAX) Unknown Completed [facility] Influenza Virus Vaccine Quad IM 3+ YRS Unknown Completed [facility] TDAP Unknown Completed [facility] TDAP (ADACEL) VACCINE Unknown Completed [facility] Influenza Virus Vaccine Quad .5 mL IM 6+ MO (FLUZONE/FLULAVAL/F LUARIX) Unknown Completed [facility] Influenza Virus Vaccine Quad .5 mL IM 6+ MO (FLUZONE/FLULAVAL/F LUARIX) Unknown Completed [facility] SARS-COV-2 COVID-19 PFIZER VACCINE Unknown Completed [facility] SARS-COV-2 COVID-19 PFIZER VACCINE Unknown Completed [facility] HPV9 Unknown Completed [facility] HPV9 Unknown Completed [facility] HPV9 Unknown Completed [facility] Influenza Virus Vaccine Quad IM, Preserv and ABX Free 6 MO-64 YRS (FLUCELVAX) Unknown Completed [facility] Influenza Virus Vaccine Quad IM 3+ YRS Unknown Completed [facility] TDAP Unknown Completed [facility] TDAP (ADACEL) VACCINE Unknown Completed [facility] Influenza Virus Vaccine Quad .5 mL IM 6+ MO (FLUZONE/FLULAVAL/F LUARIX) Unknown Completed [facility] Influenza Virus Vaccine Quad .5 mL IM 6+ MO (FLUZONE/FLULAVAL/F LUARIX) Unknown Completed [facility] SARS-COV-2 COVID-19 PFIZER VACCINE Unknown Completed [facility] SARS-COV-2 COVID-19 PFIZER VACCINE Unknown Completed [facility] HPV9 Unknown Completed [facility] HPV9 Unknown Completed [facility] HPV9 Unknown Completed [facility] Influenza Virus Vaccine Quad IM, Preserv and ABX Free 6 MO-64 YRS (FLUCELVAX) Unknown Completed [facility] Influenza Virus Vaccine Quad IM 3+ YRS Unknown Completed [facility] TDAP Unknown Completed [facility] TDAP (ADACEL) VACCINE Unknown Completed [facility] Influenza Virus Vaccine Quad .5 mL IM 6+ MO (FLUZONE/FLULAVAL/F LUARIX) Unknown Completed [facility] Influenza Virus Vaccine Quad .5 mL IM 6+ MO (FLUZONE/FLULAVAL/F LUARIX) Unknown Completed [facility] SARS-COV-2 COVID-19 PFIZER VACCINE Unknown Completed [facility] SARS-COV-2 COVID-19 PFIZER VACCINE Unknown Completed [facility] HPV9 Unknown Completed [facility] HPV9 Unknown Completed [facility] HPV9 Unknown Completed [facility] Influenza Virus Vaccine Quad IM, Preserv and ABX Free 6 MO-64 YRS (FLUCELVAX) Unknown Completed [facility] Influenza Virus Vaccine Quad IM 3+ YRS Unknown Completed [facility] TDAP Unknown Completed [facility] TDAP (ADACEL) VACCINE Unknown Completed [facility] Influenza Virus Vaccine Quad .5 mL IM 6+ MO (FLUZONE/FLULAVAL/F LUARIX) Unknown Completed [facility] Influenza Virus Vaccine Quad .5 mL IM 6+ MO (FLUZONE/FLULAVAL/F LUARIX) Unknown Completed [facility] SARS-COV-2 COVID-19 PFIZER VACCINE Unknown Completed [facility] SARS-COV-2 COVID-19 PFIZER VACCINE Unknown Completed [facility] HPV9 Unknown Completed [facility] HPV9 Unknown Completed [facility] HPV9 Unknown Completed [facility] Influenza Virus Vaccine Quad IM, Preserv and ABX Free 6 MO-64 YRS (FLUCELVAX) Unknown Completed [facility] Influenza Virus Vaccine Quad IM 3+ YRS Unknown Completed [facility] TDAP Unknown Completed [facility] TDAP (ADACEL) VACCINE Unknown Completed [facility] Influenza Virus Vaccine Quad .5 mL IM 6+ MO (FLUZONE/FLULAVAL/F LUARIX) Unknown Completed [facility] Influenza Virus Vaccine Quad .5 mL IM 6+ MO (FLUZONE/FLULAVAL/F LUARIX) Unknown Completed [facility] SARS-COV-2 COVID-19 PFIZER VACCINE Unknown Completed [facility] SARS-COV-2 COVID-19 PFIZER VACCINE Unknown Completed [facility] HPV9 Unknown Completed [facility] HPV9 Unknown Completed [facility] HPV9 Unknown Completed [facility] Influenza Virus Vaccine Quad IM, Preserv and ABX Free 6 MO-64 YRS (FLUCELVAX) Unknown Completed [facility] Influenza Virus Vaccine Quad IM 3+ YRS Unknown Completed [facility] TDAP Unknown Completed [facility] TDAP (ADACEL) VACCINE Unknown Completed [facility] Influenza Virus Vaccine Quad .5 mL IM 6+ MO (FLUZONE/FLULAVAL/F LUARIX) Unknown Completed [facility] Influenza Virus Vaccine Quad .5 mL IM 6+ MO (FLUZONE/FLULAVAL/F LUARIX) Unknown Completed [facility] SARS-COV-2 COVID-19 PFIZER VACCINE Unknown Completed [facility] SARS-COV-2 COVID-19 PFIZER VACCINE Unknown Completed [facility] HPV9 Unknown Completed [facility] HPV9 Unknown Completed [facility] HPV9 Unknown Completed [facility] Influenza Virus Vaccine Quad IM, Preserv and ABX Free 6 MO-64 YRS (FLUCELVAX) Unknown Completed [facility] Influenza Virus Vaccine Quad IM 3+ YRS Unknown Completed [facility] TDAP Unknown Completed [facility] TDAP (ADACEL) VACCINE Unknown Completed [facility] Influenza Virus Vaccine Quad .5 mL IM 6+ MO (FLUZONE/FLULAVAL/F LUARIX) Unknown Completed [facility] Influenza Virus Vaccine Quad .5 mL IM 6+ MO (FLUZONE/FLULAVAL/F LUARIX) Unknown Completed [facility] SARS-COV-2 COVID-19 PFIZER VACCINE Unknown Completed [facility] SARS-COV-2 COVID-19 PFIZER VACCINE Unknown Completed [facility] HPV9 Unknown Completed [facility] HPV9 Unknown Completed [facility] HPV9 Unknown Completed [facility] Influenza Virus Vaccine Quad IM, Preserv and ABX Free 6 MO-64 YRS (FLUCELVAX) Unknown Completed [facility] Vital Signs Vital Name Observation Time Observation Value Comments S ource Systolic blood pressure 2023-06-14 18:12:00 105 mm[Hg] [facility] Diastolic blood pressure 2023-06-14 18:12:00 68 mm[Hg] [facility] Heart rate 2023-06-14 18:12:00 77 /min [facility] Body temperature 2023-06-14 18:12:00 36.61 Zoe [facility] Respiratory rate 2023-06-14 18:12:00 18 /min [facility] Body weight 2023-06-14 18:12:00 69.582 kg [facility] BMI 2023-06-14 18:12:00 26.33 kg/m2 [facility] Systolic blood pressure 2023-03-15 16:35:00 112 mm[Hg] [facility] Diastolic blood pressure 2023-03-15 16:35:00 61 mm[Hg] [facility] Heart rate 2023-03-15 16:35:00 75 [facility] 2023-03-15 16:35:00 37 Zoe [facility] Body height 2023-03-15 16:35:00 162.6 cm [facility] Body weight 2023-03-15 16:35:00 69.673 kg [facility] BMI 2023-03-15 16:35:00 26.37 kg/m2 [facility] Systolic blood pressure 2022-03-08 21:28:00 110 mm[Hg] [facility] Diastolic blood pressure 2022-03-08 21:28:00 71 mm[Hg] [facility] Heart rate 2022-03-08 21:28:00 72 /min [facility] Body temperature 2022-03-08 21:28:00 36.94 Zoe [facility] Respiratory rate 2022-03-08 21:28:00 17 /min [facility] Body height 2022-03-08 21:28:00 162.6 cm [facility] Body weight 2022-03-08 21:28:00 62.596 kg [facility] BMI 2022-03-08 21:28:00 23.69 kg/m2 [facility] Systolic blood pressure 2021-11-17 19:20:00 113 mm[Hg] [facility] Diastolic blood pressure 2021-11-17 19:20:00 71 mm[Hg] [facility] Heart rate 2021-11-17 19:20:00 74 /min [facility] Body temperature 2021-11-17 19:20:00 36.5 Zoe [facility] Respiratory rate 2021-11-17 19:20:00 18 /min [facility] Body height 2021-11-17 19:20:00 162.6 cm [facility] Body weight 2021-11-17 19:20:00 61.417 kg [facility] BMI 2021-11-17 19:20:00 23.24 kg/m2 [facility] Systolic blood pressure 2021-10-20 20:35:00 111 mm[Hg] [facility] Diastolic blood pressure 2021-10-20 20:35:00 72 mm[Hg] [facility] Heart rate 2021-10-20 20:35:00 80 /min [facility] Body temperature 2021-10-20 20:35:00 36.78 Zoe [facility] Respiratory rate 2021-10-20 20:35:00 18 /min [facility] Body height 2021-10-20 20:35:00 162.6 cm [facility] Body weight 2021-10-20 20:35:00 62.143 kg [facility] BMI 2021-10-20 20:35:00 23.52 kg/m2 [facility] Procedures Procedure Date / Time Performed Performing Clinician Source CONSENT/REFUSAL FOR DIAGNOSIS AND TREATMENT 2023-03-15 16:18:01 Doctor Unassigned, [place] [facility] ASSIGNMENT OF BENEFITS 2023-03-15 16:17:41 Dockelly r Unassigned, [place] [facility] POCT TEST 2023-03-15 00:00:00 Yaneth Laughlin [facility] FLU VACC ([id number]), 6 MO-64 YRS, .5ML, IM, QUAD (FLUCELVAX) 2022-03-08 21:37:44 Yaneth Laughlin [facility] ASSIGNMENT OF BENEFITS 2022-03-08 21:16:20 Docto r Unassigned, [place] [facility] PATIENT QUESTIONNAIRE 2021-10-14 05:01:00 Doctor Unassigned, [place] [facility] Encounters Start Date/Time End Date/Time Encounter Type Admission Type Attending Clinicians Care Facility Care Department Encounter ID Source 2020-12-26 17:59:01 Emergency [facility] [id number] [facility] 2024-03-21 08:00:00 2024-03-21 08:00:00 Outpatient R YANETH LAUGHLIN [facility] [id number] [facility] 2023-06-14 13:00:00 2023-06-14 13:27:27 Outpatient R YANETH LAUGHLIN [facility] [id number] [facility] 2023-06-14 13:00:00 2023-06-14 13:27:27 Office Visit Yaneth Laughlin [facility] 1.2.840.114 350.1.13.10 4.2.7.2.686 [id number] 134 [id number] [facility] 2023-04-20 00:00:00 2023-04-20 00:00:00 Patient Secure Msg Doctor Unassigned, [place] [facility] 1.2.840.114 350.1.13.10 4.2.7.2.686 [id number] 134 [id number] [facility] 2023-03-20 00:00:00 2023-03-20 00:00:00 Patient Secure Msg Doctor Unassigned, [place] [facility] 1.2.840.114 350.1.13.10 4.2.7.2.686 [id number] [facility] 2023-03-17 00:00:00 2023-03-17 00:00:00 Case Management Yaneth Laughlin [facility]ING 1.2.840.114 350.1.13.10 4.2.7.2.686 [id number] 134 [id number] [facility] 2023-03-17 00:00:00 2023-03-17 00:00:00 Telephone Yaneth Laughlin [facility] 1.2.840.114 350.1.13.10 4.2.7.2.686 [id number] 134 [id number] [facility] 2023-03-15 10:30:00 2023-03-15 11:05:20 Outpatient R YANETH LAUGHLIN [facility] [id number] [facility] 2023-03-15 10:30:00 2023-03-15 11:05:20 Office Visit Yaneth Laughlin [facility] 1.2.840.114 350.1.13.10 4.2.7.2.686 [id number] 134 [id number] [facility] 2023-03-15 00:00:00 2023-03-15 00:00:00 Orders Only Doctor Unassigned, [place] [facility] 1.2.840.114 350.1.13.10 4.2.7.2.686 [id number] [id number] [facility] 2022-03-24 00:00:00 2022-03-24 00:00:00 Telephone Yaneth Laughlin [facility] 1.2.840.114 350.1.13.10 4.2.7.2.686 [id number] 134 [id number] [facility] 2022-03-08 15:00:00 2022-03-08 15:55:19 Office Visit Yaneth Laughlin [facility] 1.2.840.114 350.1.13.10 4.2.7.2.686 [id number] 134 [id number] [facility] 2022-03-08 15:00:00 2022-03-08 15:55:19 Outpatient R YANETH LAUGHLIN [facility] [id number] [facility] 2022-03-08 15:00:00 2022-03-08 15:00:00 Outpatient R YANETH LAUGHLIN [facility] [id number] [facility] 2022-03-08 00:00:00 2022-03-08 00:00:00 Orders Only Doctor Unassigned, [place] [facility] 1.2.840.114 350.1.13.10 4.2.7.2.686 [id number] [facility] 2021-12-29 15:30:00 2021-12-29 15:30:00 Outpatient R YANETH LAUGHLIN [facility] [id number] [facility] 2021-11-17 13:45:00 2021-11-17 14:42:19 Outpatient R YANETH LAUGHLIN [facility] [id number] [facility] 2021-11-17 13:45:00 2021-11-17 14:42:19 [facility] 1.2.840.114 350.1.13.10 4.2.7.2.686 [id number] 134 [id number] [facility] 2021-10-20 15:00:00 2021-10-20 16:15:57 Office Visit Yaneth Laughlin [facility] 1.2.840.114 350.1.13.10 4.2.7.2.686 [id number] 134 [id number] [facility] 2021-10-20 15:00:00 2021-10-20 16:15:57 Outpatient R YANETH LAUGHLIN [facility] [id number] [facility] 2021-10-20 15:00:00 2021-10-20 15:00:00 [facility] [id number] 2021-10-20 15:00:00 2021-10-20 15:00:00 Outpatient R YANETH LAUGHLIN [facility] [id number] [facility] 2021-10-14 00:00:00 2021-10-14 00:00:00 Orders Only Doctor Unassigned, [place] [facility] 1.2.840.114 350.1.13.10 4.2.7.2.686 [id number] [id number] [facility] 2021-10-13 00:00:00 2021-10-13 00:00:00 Telephone Yaneth Laughlin [facility] 1.2.840.114 350.1.13.10 4.2.7.2.686 [id number] 134 [id number] [facility] 2021-10-12 11:00:00 2021-10-12 14:43:30 Outpatient R YANETH LAUGHLIN [facility] [id number] [facility] 2021-10-12 11:00:00 2021-10-12 14:43:30 [facility] 1.2.840.114 350.1.13.10 4.2.7.2.686 [id number] 134 [id number] [facility] 2021-10-12 11:00:00 2021-10-12 14:43:30 Outpatient R YANETH LAUGHLIN [facility] [id number] [facility] 2021-10-12 00:00:00 2021-10-12 00:00:00 Telephone Yaneth Laughlin [facility] 1.2.840.114 350.1.13.10 4.2.7.2.686 [id number] 134 [id number] [facility] 2021-09-06 15:30:00 2021-09-06 16:09:08 Nurse Visit [facility] 1.2.840.114 350.1.13.10 4.2.7.2.686 [id number] 134 [id number] [facility] 2021-09-06 15:30:00 2021-09-06 15:30:00 Outpatient R YANETH LAUGHLIN [facility] [id number] [facility] 2021-05-06 15:30:00 2021-05-06 15:53:09 Outpatient R YANETH LAUGHLIN [facility] [id number] [facility] 2021-05-06 15:30:00 2021-05-06 15:53:09 Nurse Visit [facility], [facility] 1.2.840.114 350.1.13.10 4.2.7.2.686 [id number] 134 [id number] [facility] 2021-05-06 00:00:00 2021-05-06 00:00:00 Refill Yaneth Laughlin [facility] 1.2.840.114 350.1.13.10 4.2.7.2.686 [id number] 134 [id number] [facility] 2021-03-08 15:00:00 2021-03-08 16:06:34 Outpatient R YANETH LAUGHLIN [facility] [id number] [facility] 2021-03-08 15:00:00 2021-03-08 15:30:00 Office Visit Yaneth Laughlin [facility] 1.2.840.114 350.1.13.10 4.2.7.2.686 [id number] 134 [id number] [facility] 2021-03-08 15:00:00 2021-03-08 15:00:00 [facility] [id number] [facility] 2021-03-08 00:00:00 2021-03-08 00:00:00 Orders Only Doctor Unassigned, [place] [facility] 1.2.840.114 350.1.13.10 4.2.7.2.686 [id number] [id number] [facility] 2021-01-13 00:00:00 2021-01-13 00:00:00 Patient Secure Msg Doctor Unassigned, [place] [facility] 1.2.840.114 350.1.13.10 4.2.7.2.686 [id number] [facility] 2021-01-06 15:00:00 2021-01-06 15:37:39 Outpatient R YANETH LAUGHLIN [facility] [id number] [facility] 2021-01-06 14:34:03 2021-01-06 15:37:39 Office Visit Yaneth Laughlin [facility] 1.2.840.114 350.1.13.10 4.2.7.2.686 [id number] 134 [id number] [facility] 2021-01-06 15:00:00 2021-01-06 15:00:00 [facility] [id number] 2020-12-02 13:18:47 2020-12-02 14:30:45 Office Visit Yaneth Laughlin [facility] 1..840.114 350.1.13.10 4.2.7.2.686 [id number] 134 [id number] [facility] 2020-12-02 13:30:00 2020-12-02 13:30:00 Outpatient R YANETH LAUGHLIN [facility] [id number] [facility] 2020-10-21 12:44:57 2020-10-21 12:45:06 Imm/Inj Visit Nurse, Sherry Pittman Immunizatio markos Lindsey Sidney Toney [facility] 1..840.114 350.1.13.10 4.2.7.2.686 [id number] [facility] 2020-10-21 12:20:00 2020-10-21 12:20:00 Outpatient R CÉSAR SIDNEY [facility] [id number] [facility] 2020-09-30 15:10:00 2020-09-30 15:10:00 Outpatient R CÉSAR SIDNEY [facility] [id number] [facility] 2020-09-30 13:34:54 2020-09-30 14:04:54 Office Visit Yaneth Laughlin [facility] 1..840.114 350.1.13.10 4.2.7.2.686 [id number] 134 [id number] [facility] 2020-09-30 13:30:00 2020-09-30 13:30:00 Outpatient R YANETH LAUGHLIN [facility] [id number] [facility] 2020-09-18 00:00:00 2020-09-18 00:00:00 Telephone Yaneth Laughlin [facility] 1..840.114 350.1.13.10 4.2.7.2.686 [id number] 134 [id number] [facility] 2020-09-01 00:00:00 2020-09-01 00:00:00 Case Management Yaneth Laughlin [facility] 1.2.840.114 350.1.13.10 4.2.7.2.686 [id number] 134 [id number] [facility] 2020-08-29 00:00:00 2020-08-29 00:00:00 Orders Only Doctor Unassigned, [place] [facility] 1.2.840.114 350.1.13.10 4.2.7.2.686 [id number] [facility] 2020-08-28 00:00:00 2020-08-28 00:00:00 Case Management Yaneth Laughlin [facility] 1.2.840.114 350.1.13.10 4.2.7.2.686 [id number] 134 [id number] [facility] 2020-08-26 10:51:16 2020-08-26 11:28:50 Office Visit Yaneth Laughlin [facility] 1.2.840.114 350.1.13.10 4.2.7.2.686 [id number] 134 [id number] [facility] 2020-08-26 10:30:00 2020-08-26 10:30:00 Outpatient R YANETH LAUGHLIN [facility] [id number] [facility] 2020-07-29 09:34:02 2020-07-29 10:04:06 Office Visit Yaneth Laughlin [facility] 1.2.840.114 350.1.13.10 4.2.7.2.686 [id number] 134 [id number] [facility] 2020-07-29 09:30:00 2020-07-29 09:30:00 [facility] [id number] [facility] 2020-05-19 00:00:00 2020-05-19 00:00:00 Patient Outreach Sidney Lindsey [facility] 1.2.840.114 350.1.13.10 4.2.7.2.686 [id number] [facility] 2020-04-27 10:34:15 2020-04-27 11:10:30 Office [facility] 1.2.840.114 350.1.13.10 4.2.7.2.686 [id number] 134 [id number] [facility] 2020-04-27 10:30:00 2020-04-27 10:30:00 Outpatient R JUDSON LAUGHLINEN [facility] [id number] [facility] 2020-04-17 14:25:29 2020-04-17 14:40:29 Operational Risk Analyst Visit 2, Adc Lab Yaneth Laughlin [facility] 1.2.840.114 350.1.13.10 4.2.7.2.686 [id number] [facility] 2020-04-17 14:00:00 2020-04-17 14:00:00 Outpatient R [facility] [id number] [facility] 2020-04-10 12:56:30 2020-04-10 13:11:30 Operational Risk Analyst Visit 2, [facility] 1.2.840.114 350.1.13.10 4.2.7.2.686 [id number] [facility] 2020-04-10 11:45:00 2020-04-10 11:45:00 Outpatient R [facility] [id number] [facility] 2020-04-03 00:00:00 2020-04-03 00:00:00 Telephone [facility] 1.2.840.114 350.1.13.10 4.2.7.2.686 [id number] 134 [id number] [facility] 2020-04-02 17:18:37 2020-04-02 17:33:37 Operational Risk Analyst Visit 2, Adc Lab Yaneth Laughlin [facility] 1.2.840.114 350.1.13.10 4.2.7.2.686 [id number] [facility] 2020-04-02 16:00:00 2020-04-02 16:00:00 Outpatient R YANETH LAUGHLIN [facility] [id number] [facility] 2020-03-26 14:35:39 2020-03-26 15:37:32 Office Visit Yaneth Laughlin [facility] 1.2.840.114 350.1.13.10 4.2.7.2.686 [id number] 134 [id number] [facility] 2020-03-26 14:30:00 2020-03-26 14:30:00 Outpatient R YANETH LAUGHLIN [facility] [id number] [facility] 2020-03-26 12:25:11 2020-03-26 12:40:11 Operational Risk Analyst Visit Pob, Adc Lab Main Yaneth Laughlin [facility] 1.2.840.114 350.1.13.10 4.2.7.2.686 [id number] [facility] 2020-03-26 00:00:00 2020-03-26 00:00:00 Telephone Yaneth Laughlin [facility] 1.2.840.114 350.1.13.10 4.2.7.2.686 [id number] 134 [id number] [facility] 2020-03-26 00:00:00 2020-03-26 00:00:00 Orders Only Doctor Unassigned, [place] [facility] 1.2840.114 350.1.13.10 4.2.7.2.686 [id number] [facility] 2020-03-17 10:53:00 2020-03-17 13:23:00 Emergency OlguinGenna matthews [facility] 1.2840.114 350.1.13.10 4.2.7.2.686 [id number] [facility] 2020-03-17 11:15:00 2020-03-17 11:15:00 Outpatient R [facility] [id number] [facility] 2020-03-17 00:00:00 2020-03-17 00:00:00 Telephone [facility] 1.2.840.114 350.1.13.10 4.2.7.2.686 [id number] 134 [id number] [facility] 2020-03-13 08:07:01 2020-03-13 08:22:01 Operational Risk Analyst Visit Toya, Sherry Lab Main [facility] Building 1.284.114 350.1.13.10 4.2.7.2.686 [id number] [facility] 2020-03-13 08:00:00 2020-03-13 08:00:00 Outpatient R YANETH LAUGHLIN [facility] [id number] [facility] 2020-03-11 17:32:02 2020-03-11 17:47:02 Operational Risk Analyst Visit Toya, Sherry Lab Main [facility] 1.2.840.114 350.1.13.10 4.2.7.2.686 [id number] [facility] 2020-03-11 15:59:25 2020-03-11 17:08:10 Initial Visit Yaneth Laughlin [facility] Building 1..840.114 350.1.13.10 4.2.7.2.686 [id number] 134 [id number] [facility] 2020-03-11 16:00:00 2020-03-11 16:00:[address] [facility] [id number] [facility] 2020-03-11 15:45:00 2020-03-11 15:45:[address] [facility] [id number] [facility] 2020-03-11 00:00:00 2020-03-11 00:00:00 Orders Only Doctor Unassigned, [place] [facility] 1.2840.114 350.1.13.10 4.2.7.2.686 [id number] [facility] 2020-02-24 15:55:50 2020-02-24 16:19:50 Nurse Visit Nurse, [facility] Yaneth Laughlin [facility] 1..840.114 350.1.13.10 4.2.7.2.686 [id number] [facility] 2020-02-24 15:30:00 2020-02-24 15:30:[address] [facility] [id number] [facility] 2020-02-24 15:00:00 2020-02-24 15:00:00 Outpatient R [facility] [id number] [facility] 2020-02-24 00:00:00 2020-02-24 00:00:00 Orders Only Doctor Unassigned, [place] [facility] 1.284.114 350.1.13.10 4.2.7.2.686 [id number] [facility] 2019-09-03 15:45:00 2019-09-03 15:45:00 Outpatient R KYARA COFFEY [facility] [id number] [facility] 2019-03-05 16:15:00 2019-03-05 17:16:15 Outpatient R YANETH LAUGHLIN [facility] [id number] [facility] 2019-01-31 04:19:00 2019-02-01 18:16:00 Hospital Encounter Yaneth Laughlin [facility] 1.2.840.114 350.1.13.10 4.2.7.2.686 [id number] 2019-01-31 04:19:00 2019-02-01 18:16:00 Hospital Encounter Yaneth Laughlin [facility] 1.2.840.114 350.1.13.10 4.2.7.2.686 [id number] [facility] 2019-01-31 04:19:00 2019-02-01 18:15:00 Inpatient P YANETH LAUGHLIN [place] [id number] [facility] 2018-11-06 00:00:00 2018-11-06 00:00:00 Telephone Kyara Coffey [facility] 1.2.840.114 350.1.13.10 4.2.7.2.686 [id number] 134 [id number] [facility] 2018-10-25 16:17:44 2018-10-25 17:26:03 Routine Visit [facility] 1.2.840.114 350.1.13.10 4.2.7.2.686 [id number] 134 [id number] [facility] 2018-09-26 16:16:47 2018-09-26 16:41:50 [facility] 1.2.840.114 350.1.13.10 4.2.7.2.686 [id number] 134 [id number] [facility] 2018-09-21 09:57:59 2018-09-21 10:54:49 Operational Risk Analyst Visit Ultrasound, Adc Mfdaniela LaughlinJudsonbrandon Adams [facility] 1.2.840.114 350.1.13.10 4.2.7.2.686 [id number] 134 [id number] [facility] 2018-08-29 15:45:00 2018-08-29 15:45:00 Outpatient R ALEXXKYARA [facility] [id number] [facility] Results Test Description Test Time Test Comments Results Result Co mments Source [id number] 16:41:00* Test Item Value Reference Range Interpretation Comme nts POCT PREG (test code = 1605) Negative On board controls acceptable with C Line (test code = 3574) Yes POCT PREG LOT # (test code = 3575) POCT PREG TEST DATE ( test code = 3576) [facility] Notes Date/Time Note Provider Source 2023-04-24 15:53:44 12DOP2J8VdQiyGJ3DDzY 3GYgktpwxpq KoBGQJZsKaHA7r0pWy+1EbFxlLk6XHy wt8402-80-54A28:53:44 Name and verified. Pt does not need this refilled.IRIS SALINAS RN 04/24/2023 3:53 PM 74519-1Eoenmcpsh encounter JwpdUG6328-31-97V22:54:00Teleph one encounter NoteTXT1.2.840.186152.1.13.104. 2.7.2.991704|[id number] ble for patient hwxs26809-1ZeyrEMQTEXIIPJZJxygz tted C-CDA narrative [id number] Salinas RN[address] NasbRjexyhxkoLpzmshdqnZGMZ18932 14195LHNKXJHRUGFTRVXKIAOCYG1488 -02-26T15:54:001.2.840.130116.1 .72.3.15|1.2.840.137339.1.13.10 4.2.7.2.727879_[id number] Iris Kush Salinas RN [facility] 2023-03-17 16:49:02 NHar+lBUAS5MRYdipf+q ibKXgt5JjUy UsluQb0RjCrjaqoTJZeqy3TS0K1UzYz 6w6246-46-99U13:49:02 Images from the original note were not included.Yaneth Laughlin MD03/17/2023 10:29 AM LEG BREAKER+ trichomonas: yl Dion Laughlin MD 03/17/2023 10:29 AMSpoke with patient. Patient wanting to know how she got Trichomonas since she has not been sexually active recently. Patient advised she was last tested for it 4 years ago and was negative at that time. Patient advised this is a sexually transmitted disease. Patient advised to abstain from intercourse for at least 2 weeks after treatment. Patient verbalized understanding.Steve Marie RN 03/17/2023 4:51 PM 79567-3Pzonvcrtr encounter BpvlLD1741-57-92E87:51:23Teleph one encounter NoteTXT1.2.840.805043.1.13.104. 2.7.2.948348|[id number] [facility] zjns19721-9GzykKPRQEZSTWTVFbynx tted C-CDA narrative [id number] Collins RN[address] NdkcTlkdcymfdNsfnluyviZUWO70993 03818QHITSIRQOPKUSLFYMEQFMH0142 -01-19T16:51:231.2.840.930151.1 .72.3.15|1.2.840.169541.1.13.10 4.2.7.2.727879_[id number] Steve Marie RN [facility] 2023-03-17 16:36:04 vlcKDofZ2sHWVweiQwAx e9YlJtEO9iy KH9/TYLmNizJHE9vW+FVNt987MM5Pnh QL6298-91-55R02:36:04 Nelda Sinclair is a 32 year old female that is calling with questions about test results.Please advise. 35261-9Wljottkmw encounter MscsRP5474-59-42B35:36:51Teleph one encounter NoteTXT1.2.840.541073.1.13.104. 2.7.2.878375|[id number] [facility] patient twns86753-2XkbyZPJOYVNRMSZLrizr tted C-CDA narrative qepo953758568Jqhi Jrab[address] OsqyBzubmvgulKappuodsfDULB83844 14244JRJPYQXIINVFRGULFOAKPD3726 -01-19T16:36:511.2.840.971554.1 .72.3.15|1.2.840.369670.1.13.10 4.2.7.2.727879_[id number] Ernestina Huerta [facility]"
--- NOTE | 2023-07-02 19:16 | ER ---
Nurse's Notes [facility] Name: Sugar Hughes Age: 32 yrs Sex: Female : 1990 Arrival Date: 07/02/2023 Time: 17:58 Bed 11 Private MD: Diagnosis: Laceration without foreign body of other part of head, initial encounter;Bitten by dog, initial encounter Presentation: 07/01 18:20 Chief complaint: Patient states: Bit in the nose by cousins dog yesterday. Denies [facility] fever. Painful. Coronavirus screen: Vaccine status: Patient reports receiving the 1st dose of the Covid vaccine. Ebola Screen: Patient denies travel to an Ebola-affected area in the 21 days before illness onset. Initial Sepsis Screen: Does the patient meet any 2 criteria? No. Patient's initial sepsis screen is negative. Does the patient have a suspected source of infection? No. Patient's initial sepsis screen is negative. Risk Assessment: Do you want to hurt yourself or someone else? Patient reports no desire to harm self or others. Onset of symptoms was July 01, 2023. 18:20 Method Of Arrival: Ambulatory [facility] 18:20 Acuity: KELBY 4 [facility] Triage Assessment: 19:29 General: Appears uncomfortable, Behavior is calm, cooperative, appropriate for age. cp4 19:29 Bite description: by a dog. cp4 19:30 Bite description: bite sustained to nose. cp4 19:30 Bite description: animal information: vaccination(s) is current. cp4 VEST MAKER: 19:28 unknown cp4 Historical: - Allergies: 18:23 No Known Allergies; nj1 - PMHx: 18:23 None; nj1 - Immunization history:: Client reports receiving the 1st dose of the Covid vaccine. - Infectious Disease History:: Denies. CDIFF, C. Auris, ESBL, MRSA (w/in 1 year), VRE (w/in 1 year), TB, . - Social history:: Smoking status: Patient denies any tobacco usage or history of. Screenin:31 [facility] ED Fall Risk Assessment (Adult) History of falling in the last 3 months, cp4 including since admission No falls in past 3 months (0 pts) Confusion or Disorientation No (0 pts) Intoxicated or Sedated No (0 pts) Impaired Gait No (0 pts) Mobility Assist Device Used No (0 pt) Altered Elimination No (0 pt) Score/Fall Risk Level 0 - 2 = Low Risk Oriented to surroundings, Maintained a safe environment, Assessed \T\ reinforced patient's understanding of fall precautions, Hourly rounding (assess needs \T\ fall precautionary measures) done. Abuse screen: Denies threats or abuse. Nutritional screening: No deficits noted. Tuberculosis screening: No symptoms or risk factors identified. Assessment: 18:31 Reassessment: Dog bite reported to [place] [employer]. States they will send [facility] an officer out. Pain: Complains of pain in nose. Derm: Reports pain that is 7 out of 10 on a pain scale. 18:42 Reassessment: [facility] in room with patient. cp4 19:29 Derm: Skin is normal. cp4 19:30 Derm: Skin puncture wounds. cp4 Vital Signs: 18:20 BP 110 / 74; Pulse 81; Resp 16; Temp 98.6(O); Pulse Ox 100% ; Weight 71.67 kg; Height 5 nj1 ft. 4 in. ; 19:28 BP 108 / 74; Pulse 84; Resp 18; Pulse Ox 99% ; cp4 18:20 Body Mass Index 27.12 (71.67 kg, 162.56 cm) ms1 ED Course: 18:04 Patient arrived in ED. ra3 18:08 Jack Tong PA is PHCP. cp 18:08 Jack Daniels MD is Attending Physician. cp 18:23 Triage completed. nj1 18:24 Arm band placed on left wrist. nj1 18:27 Ramya Dickinson is Primary Nurse. cp4 18:31 Bed in low position. Call light in reach. Side rails up X 1. Provided Education on: dog cp4 bite. 18:31 No provider procedures requiring assistance completed. Patient did not have IV access cp4 during this emergency room visit. Administered Medications: 19:27 Drug: Amoxicillin-Clavulanate PO 875 mg PO once Route: PO; cp4 19:27 Follow up: Response: No adverse reaction cp4 19:27 Drug: Acetaminophen PO 1000 mg PO once Route: PO; cp4 19:27 Follow up: Response: No adverse reaction cp4 Medication: 18:31 VIS not applicable for this client. cp4 Outcome: 19:16 Discharge ordered by . cp 19:29 Discharged to home ambulatory, cp4 19:29 Condition: stable 19:29 Discharge instructions given to patient, Instructed on discharge instructions, follow up and referral plans. medication usage, Demonstrated understanding of instructions, follow-up care, medications, Prescriptions given X 1, 19:30 Patient left the ED. cp4 Signatures: Jack Tong PA PA cp Yulisa Stewart RN RN nj1 Ramya Dickinson cp4 Ania Berry ra3
--- NOTE | 2023-07-02 19:16 | EDPHYS ---
[facility] Name: Sugar Hughes Age: 32 yrs Sex: Female : 1990 Arrival Date: 07/02/2023 Time: 17:58 Bed 11 Private MD: Jack Antonio HPI: 07/01 19:00 This 32 yrs old Black Female presents to ER via Ambulatory with complaints of Dog Bite cp - on nose. 19:00 The patient was bitten on the right side nose, by a dog, in an unprovoked manner, at home. Onset: The symptoms/episode began/occurred yesterday. Animal information: Animal control has been notified. Secondary to the bite the patient reports a laceration, that is superficial. Associated signs and symptoms: Pertinent positives: erythema at site, swelling at site, Pertinent negatives: fever. LINE PRODUCER: 19:28 unknown cp4 Historical: - Allergies: 18:23 No Known Allergies; nj1 - PMHx: 18:23 None; nj1 - Immunization history:: Client reports receiving the 1st dose of the Covid vaccine. - Infectious Disease History:: Denies. CDIFF, C. Auris, ESBL, MRSA (w/in 1 year), VRE (w/in 1 year), TB, . - Social history:: Smoking status: Patient denies any tobacco usage or history of. ROS: 19:05 Skin: Positive for of the nose, dog bite, cp 19:05 Constitutional: Negative for body aches, chills, fever, cp 19:05 All other systems are negative, Exam: 19:10 Constitutional: The patient appears in no acute distress, alert, awake, comfortable, cp non-toxic, well developed, well nourished, 19:10 Head/face: Noted is swelling, that is mild, of the patient's right side of nose, cp superficial laceration noted with no drainage, mild erythema noted. 19:10 Eyes: Periorbital structures: appear normal, Conjunctiva: normal, no exudate, no injection, Sclera: no appreciated abnormality, Lids and lashes: appear normal, bilaterally, 19:10 ENT: External ear(s): are unremarkable, Mouth: Lips: moist, Oral mucosa: pink and intact, moist, Posterior pharynx: Airway: no evidence of obstruction, patent, 19:10 Neck: ROM/movement: is normal, is supple, without pain, no range of motions limitations, no meningismus, no nuchal rigidity, 19:10 Chest/axilla: Inspection: normal, Palpation: is normal, no crepitus, no tenderness, 19:10 Cardiovascular: Rate: normal, Rhythm: regular, cp 19:10 Respiratory: the patient does not display signs of respiratory distress, Respirations: normal, no use of accessory muscles, no retractions, Vital Signs: 18:20 BP 110 / 74; Pulse 81; Resp 16; Temp 98.6(O); Pulse Ox 100% ; Weight 71.67 kg; Height 5 nj1 ft. 4 in. ; 19:28 BP 108 / 74; Pulse 84; Resp 18; Pulse Ox 99% ; cp4 18:20 Body Mass Index 27.12 (71.67 kg, 162.56 cm) nj1 MDM: 18:24 Patient medically screened. hair 19:15 Data reviewed: vital signs, nurses notes, and as a result, I will discharge patient. cp 19:15 Differential diagnosis: superficial laceration, rabies, cellulitis. I considered the cp following discharge prescriptions or medication management in the emergency department Medications were administered in the Emergency Department. See MAR. Counseling: I had a detailed discussion with the patient and/or guardian regarding the historical points, exam findings, and any diagnostic results supporting the discharge/admit diagnosis, to return to the emergency department if symptoms worsen or persist or if there are any questions or concerns that arise at home. Response to treatment: the patient's symptoms have mildly improved after treatment, and as a result, I will discharge patient. Administered Medications: 19:27 Drug: Amoxicillin-Clavulanate PO 875 mg PO once Route: PO; cp4 19:27 Follow up: Response: No adverse reaction cp4 19:27 Drug: Acetaminophen PO 1000 mg PO once Route: PO; cp4 19:27 Follow up: Response: No adverse reaction cp4 Disposition Summary: 07/02/23 19:16 Discharge Ordered Notes: Location: Home cp Problem: new cp Symptoms: have improved cp Condition: Stable cp Diagnosis - Laceration without foreign body of other part of head, initial encounter cp - Bitten by dog, initial encounter cp Followup: cp - With: Private Physician - When: 1 - 2 days - Reason: Wound Recheck Discharge Instructions: - Discharge Summary Sheet cp - Facial Laceration cp - Animal Bite, Adult cp Forms: - Medication Reconciliation Form cp - Antibiotic Education cp - Prescription Opioid Use cp - Patient Portal Instructions cp - Leadership Thank You Letter cp Prescriptions: - Augmentin 875-125 mg Oral Tablet - take 1 tablet ORAL route every 12 hours for 10 days; 20 tablet; Refills: 0, cp Product Selection Permitted Signatures: Jack Daniels MD MD cha Page, Corey, PA PA cp Jaco, Norma, RN RN nj1 Ramya Dickinson cp4
[2023-07-02] MEDS ORDERED: ACETAMINOPHEN 500 MG TAB ONE (19:20)
[2023-07-02] MEDS ORDERED: AMOXICILLIN TRIHYDR 250 MG CAP ONE (19:21)
[2023-07-02] MEDS ORDERED: AMOX/K CLAV 875 MG TAB ONE (19:24)
[2023-07-02 19:57] VITALS: BP 108/74; TEMP 98.6; O2SAT 99
== END 2023-07-02 19:30 | disposition home or self-care (01) ==
LOC: ER 17:58
DX: S01.21XA Laceration without foreign body of nose, initial encounter (principal); W54.0XXA Bitten by dog, initial encounter
CPT/HCPCS: 99283